=== PATIENT | female | born 1975 | race Hispanic/Latino ===

== ENCOUNTER → 2019-08-07 | Outpatient (CLI) | payer SELFPAY ==
--- NOTE | 2019-08-07 13:55 | RAD ---
EXAM DESCRIPTION: Shoulder,Left 2 or More Views CLINICAL HISTORY: SHOULDER PAIN COMPARISON: None. IMPRESSION: 4 views of the left shoulder show no acute fracture, focal bone destruction, or joint dislocation. The left acromioclavicular joint is unremarkable. 3 to 4 mm inferior osteophyte of the acromion process is seen. Electronically signed by: Angel Juarez MD 08/07/2019 1:53 PM CDT
== END ==
LOC: RAD 08:45
PROVIDERS: ATTEND Orthopaedic Surgery
DX: M25.712 Osteophyte, left shoulder (principal)